=== PATIENT | male | born 1960 | race Caucasian/White ===

== ENCOUNTER 2018-04-19 02:24 | Inpatient (IN) | payer BC, OTHER ==
[2018-04-18 13:23] LABS: INR 1.03
--- NOTE | 2018-04-18 15:16 | LEVENE H&P ---
DATE OF ADMISSION: April 19, 2018 IDENTIFICATION/CHIEF COMPLAINT The patient is a 57-year-old gentleman with a chief complaint of right knee pain. HISTORY OF PRESENT ILLNESS The patient has a history of progressive right knee arthritis that has been painful and debilitating, refractory to conservative measures. Surgery is indicated to relieve symptoms after failure of nonoperative measures. PAST MEDICAL HISTORY 1. Notable for hypertension. 2. Sleep apnea. 3. Restless leg syndrome. 4. Gout. PAST SURGICAL HISTORY Notable for contralateral knee replacement. ALLERGIES No known drug allergies. CURRENT MEDICATIONS 1. Ropinirole 2 mg q nightly. 2. Lisinopril/Hydrochlorothiazide 20/12.5 mg 2 tablets q day. 3. Allopurinol 300 mg q day. 4. Baby Aspirin per day. 5. Vitamins. FAMILY HISTORY Non-contributory. SOCIAL HISTORY Notable for chewing a can of tobacco about every 3 days for 40 years. He drinks alcohol 2-3 beers per day. Denies abuse. REVIEW OF SYSTEMS Noncontributory. PHYSICAL EXAMINATION GENERAL: This is a well-developed, well-nourished male who appears stated age. HEENT: Normocephalic, atraumatic. Extraocular muscles intact. NECK: Supple, non-tender. LUNGS: Clear to auscultation bilaterally. HEART: Regular rate and rhythm. ABDOMEN: Soft. ORTHOPEDIC EXAMINATION Exam of the right knee he had mild varus deformity. Effusions are present. Skin condition is good. He is stiff with range of motion. Gross stability is good. Extensor function intact. RADIOGRAPHS Demonstrate end-stage degenerative changes. ASSESSMENT Right knee degenerative joint disease progressively painful and debilitating, refractory to conservative care. PLAN Per patient request, we are going to proceed with total knee arthroplasty. The nature of the procedure, the risks, benefits, the anticipated rehabilitative course were reviewed. Risks include but are not limited to , major medical or anesthetic complication, infection, neurovascular injury, stiffness, scarring, fracture, tendon rupture, instability, implant loosening, migration or failure, blood transfusion, re-tear, progressive arthritis, persistent or recurrent pain or symptoms, need for additional surgery and other unforeseen. He understands and wishes to proceed. A signed permit is placed in the chart. No guarantees are given or implied. RENITA
[~2018-04-19] VITALS: Ht 185.4 cm; Wt 199.1 kg
[2018-04-19] VITALS (12 sets, daily range): BP systolic 110–124; BP diastolic 63–84
[~2018-04-19 02:24] MED LIST: ACETAMINOPHEN 500 MG TAB PO ONE; ALLO-119 PO; ASPI-1471 PO; ASPI-757 PO; ASPI81TA94 PO; CELECOXIB 200 MG CAP PO ONE; FAMOTIDINE 20 MG TAB PO ONE; FURO-45 PO; HYDR-389 PO; IBUP-136 PO; LIDOCAINE/SOD BICARB 8.4% SYR ID ONE; LISI-353 PO; LISI-362 PO; MIDAZOLAM 2 MG/2 ML VIAL IVP PRN; NORMOSOL R SOLN(*) 1000 ML BAG 1,000 ML IV PRN; POTASSIUM PO; PREGABALIN 150 MG CAPSULE PO ONE; ROPI2TAB28 PO; TRANEXAMIC AC 1000 MG/10ML SDV 1,000 MG in DEXTROSE 5% 50 ML BAG 50 ML IV ONE; ceFAZolin(*) 2GM/D5W 50ML 50 ML IVPB ONE; cloNIDine EPIDUR INJ 100MCG/ML 40 MCG, ROPIVACAINE 0.5% 20 ML VIAL 25 ML, EPINEPHrine H... INJ ONE
[2018-04-19] MEDS ORDERED: LIDOCAINE MPF 1% 5 ML VIAL ONE (07:55)
[2018-04-19] MEDS ORDERED: PROPOFOL EMUL(*) 10MG/ML 20 ML 20 ML ONE (07:55)
[2018-04-19] MEDS ORDERED: DEXAMETHASONE SOD 4 MG/ML VIAL ONE (07:55)
[2018-04-19] MEDS ORDERED: fentaNYL CITR 100 MCG/2 ML AMP ONE (07:55)
[2018-04-19] MEDS ORDERED: ONDANSETRON 4 MG/2 ML VIAL ONE (07:55)
[2018-04-19] MEDS ORDERED: KETAMINE HCL-NS 50 MG/5 ML SYR ONE (07:56)
[2018-04-19] MEDS ORDERED: MIDAZOLAM 2 MG/2 ML VIAL ONE (09:38)
[2018-04-19] MEDS ORDERED: ceFAZolin 1 GM VIAL IVPB ONE (10:37)
[2018-04-19] MEDS ORDERED: NS 0.9% IRRIGATION 1000ML PLCT IR ONE (11:37)
[2018-04-19] MEDS ORDERED: LACTATED RINGER 3000 ML BAG IR ONE (11:37)
[2018-04-19] MEDS ORDERED: LIDOCAINE/SOD BICARB 8.4% SYR ID ONE (12:30)
[2018-04-19] MEDS ORDERED: TRANEXAMIC AC 1000 MG/10ML SDV 1,000 MG in DEXTROSE 5% 50 ML BAG 50 ML IV ONE (12:30)
[2018-04-19] MEDS ORDERED: cloNIDine EPIDUR INJ 100MCG/ML 40 MCG, ROPIVACAINE 0.5% 20 ML VIAL 25 ML, EPINEPHrine H... INJ ONE (12:30)
[2018-04-19] MEDS ORDERED: MIDAZOLAM 2 MG/2 ML VIAL IVP PRN (12:30)
[2018-04-19] MEDS ORDERED: PREGABALIN 150 MG CAPSULE PO ONE (12:30)
[2018-04-19] MEDS ORDERED: NORMOSOL R SOLN(*) 1000 ML BAG 1,000 ML IV PRN ×2 (12:30→12:50)
[2018-04-19] MEDS ORDERED: CELECOXIB 200 MG CAP PO ONE (12:30)
[2018-04-19] MEDS ORDERED: ceFAZolin(*) 2GM/D5W 50ML 50 ML IVPB ONE (12:30)
[2018-04-19] MEDS ORDERED: ACETAMINOPHEN 500 MG TAB PO ONE (12:30)
[2018-04-19] MEDS ORDERED: FAMOTIDINE 20 MG TAB PO ONE (12:30)
[2018-04-19] MEDS ORDERED: MAGNESIUM HYDROXIDE* 30ML UDCP PO PRN (12:50)
[2018-04-19] MEDS ORDERED: BISACODYL 10 MG SUPP PR PRN (12:50)
[2018-04-19] MEDS ORDERED: diphenhydrAMINE 50 MG/ML VIAL IVP PRN (12:50)
[2018-04-19] MEDS ORDERED: ZOLPIDEM TARTRATE 5 MG TAB PO PRN (12:50)
[2018-04-19] MEDS ORDERED: diphenhydrAMINE 25 MG CAP PO PRN (12:50)
[2018-04-19] MEDS ORDERED: ACETAMINOPHEN 325 MG TAB PO PRN (12:50)
[2018-04-19] MEDS ORDERED: FLUSH 10 ML SYR IVP PRN (12:50)
[2018-04-19] MEDS ORDERED: PROMETHAZINE 25 MG/ML 1 ML AMP IVP PRN (12:50)
[2018-04-19] MEDS ORDERED: BENZOCAINE/MENTHOL 1 EACH LOZG PO PRN (12:50)
--- NOTE | 2018-04-19 13:15 | RADIOLOGY IMAGING REPORT ---
FACILITY: [facility] PATIENT NAME: Misael Shea : 1960 MR: [id number] V: [id number] EXAM DATE: ORDERING PHYSICIAN: MICKIE MAGDALENO TECHNOLOGIST: Location: [facility] Patient: Misael Shea : 1960 Visit/Account:[id number] Date of Sevice: 04/19/2018 KNEE LIMITED RIGHT COMPARISON: None HISTORY: RIGHT TKA TECHNIQUE: 3 views of the right knee FINDINGS: BONES: Hardware components of a right total knee arthroplasty are present in anatomic alignment with out immediate complication. There is no fracture. SOFT TISSUES: Gas in the anterior soft tissues related to surgery. Skin alejandro anteriorly. EFFUSION: None suggested. OTHER: Negative. IMPRESSION: Right total knee arthroplasty in good alignment without immediate complication. Recent postsurgical c hanges. Report Dictated By: Ramiro Trejo at 04/19/2018 1:08 PM Report E-Signed By: Ramiro Trejo at 04/19/2018 1:11 PM [id number]
[2018-04-19] MEDS ORDERED: LISI-374 PO ×2 (14:10→14:12)
[2018-04-19] MEDS ORDERED: HYDR12.556 PO (14:12)
--- NOTE | 2018-04-19 14:50 | Hospitalist Consultation ---
History of Present Illness Requesting Physician Dr. Mejia Reason for Consult Medical Management Chief Complaint s/p right total knee replacement History of Present Illness He was admitted s/p right total knee replacement. It is reported the surgery went well and without complication. History Problems: (1) HTN (hypertension) Status: Chronic (2) Restless leg syndrome Status: Chronic (3) Gout Status: Chronic (4) RACQUEL (obstructive sleep apnea) Status: Chronic Home Meds Reported Medications Lisinopril (LISINOPRIL) 40 Mg Tablet, 40 MG PO QDAY, TAB 04/19/18 Hydrochlorothiazide (HYDROCHLOROTHIAZIDE) 12.5 Mg Capsule, 2 TAB PO QDAY, CAPSULE 04/19/18 Aspirin (ASPIRIN) 81 Mg Tab.chew, 81 MG PO QDAY, TAB.CHEW 03/30/18 Ropinirole Hcl (ROPINIROLE HCL) 2 Mg Tablet, 2 MG PO DAILY PRN for LEG RESTLESSNESS 11/15/15 Allopurinol (ZYLOPRIM) 300 Mg Tablet, 300 MG PO QDAY, TAB 11/15/15 Discontinued Reported Medications Lisinopril (LISINOPRIL) 40 Mg Tablet, 40 MG PO QDAY, TAB 04/19/18 Lisinopril (LISINOPRIL) 10 Mg Tablet, 12.5 MG PO QDAY, #2 TAB 03/30/18 Allergies: Coded Allergies: No Known Drug Allergies (Unverified , 11/15/15) Patient History: FH: breast cancer MOTHER Hx Smoking: No (3-4 CANS/WEEK) Caffeine Intake: Soda Caffeine/Cups Per Day: occassionally Hx Alcohol Use: Yes Alcohol Used: Beer Hx Substance Use Disorder: No Social Drug Use: Never History of IV Drug Use: No Review of Systems All Systems Reviewed/Normal: Yes, Except as Noted ENT: Sinus Congestion Exam Vital Signs Vital Signs Date Time Temp Pulse Resp B/P (MAP) Pulse Ox O2 Delivery O2 Flow Rate FiO2 04/19/18 14:16 98.0 67 16 123/65 (84) 91 Nasal Cannula 2.0 General Appearance: Alert, Awake, No Acute Distress, Afebrile Neuro: No Gross deficits Cardiovascular: Regular Rate and Rhythm Respiratory: No Respiratory Distress, Clear to Auscultation GI: Abd Soft and Non-Tender Extremities: Warm, Perfused Psych: Alert & Oriented X3, Appropriate Mood & Affect Assessment and Plan Problems: (1) Status post total right knee replacement Status: Acute Assessment & Plan: Followed by Dr. Mejia. He will be placed on Aspirin for DVT prophylaxis. He has no history of DVT or PE. (2) HTN (hypertension) Status: Chronic Assessment & Plan: He is on chronic treatment with Lisinopril and Hydrochlorothiazide. The lisinopril has been restarted with hold parameters. (3) Gout Status: Chronic Assessment & Plan: He is on chronic treatment with Allopurinol. (4) Restless leg syndrome Status: Chronic Assessment & Plan: He is on chronic treatment with Ropinirole. (5) RACQUEL (obstructive sleep apnea) Status: Chronic Assessment & Plan: He brought his CPAP to use during admission. (6) Nasal congestion Status: Acute Assessment & Plan: We will try nasal spray Afrin to help with nasal congestion. (7) Morbid obesity with BMI of 50.0-59.9, adult Status: Chronic Venous Thromboembolism Antithrombotics Is Pt On Any Antithrombotics?: No Exam Sepsis Risk: No Definite Risk Problem Qualifiers (1) HTN (hypertension): Hypertension type: essential hypertension Qualified Codes: I10 - Essential (primary) hypertension NAIDA GALLARDO TELLER MANAGER Apr 19, 2018 14:50
[2018-04-19] MEDS: OXYMETAZOLINE SPRAY 15 ML BTL ENA SCH ×2 (15:16→21:00)
[2018-04-19] MEDS: APAP/HYDROCODONE 325/7.5 TAB PO PRN (15:17)
[2018-04-19] MEDS ORDERED: NS(*) 0.9% 500 ML BAG 500 ML ONE (17:09)
[2018-04-19] MEDS: ceFAZolin(*) 1 GM VIAL 1 GM in NS(*) 0.9% 100 ML ADDVANT BAG 100 ML IVPB SCH (17:10)
[2018-04-19] MEDS: CELECOXIB 200 MG CAP PO SCH (17:11)
[2018-04-19] MEDS: DIAZEPAM 5 MG TAB PO PRN (19:55)
--- NOTE | 2018-04-19 20:19 | OPERATIVE REPORT 1 ---
EVENT DATE: April 19, 2018 SURGEON: Clark Mejia MD ANESTHESIOLOGIST: Jem Fraser MD ANESTHESIA: General plus spinal. ACUTE CARE SURGEON: MARCOS iNcole PREOPERATIVE DIAGNOSIS Right knee degenerative joint disease. POSTOPERATIVE DIAGNOSIS Right knee degenerative joint disease PROCEDURE PERFORMED Right total knee arthroplasty. ESTIMATED BLOOD LOSS Minimal. DRAINS None. SPECIMENS None. COMPLICATIONS None apparent. TOURNIQUET TIME 63 minutes IMPLANTS USED [place] Triathlon knee system with 7 right PS femur, 7 standard tibial baseplate, 39 mm universal symmetric, all-polyethylene patellar button, and an 11 mm PS tibial tray liner. Polyethylene is X3. INDICATIONS Misael is a 57-year-old gentleman with intractable pain and disability related to end-stage knee arthritis. Surgery is indicated to relieve symptoms after failure of nonoperative measures. DESCRIPTION OF PROCEDURE Patient was taken to the operating room and placed supine on the operating table. A spinal block was administered by the anesthesiologist. General anesthesia was induced. Antibiotics and TXA were administered IV. Right lower extremity was prepped and draped in the usual sterile fashion for orthopedic surgery. Limb was exsanguinated with an Esmarch bandage. Tourniquet inflated to 300 mmHg. Midline longitudinal incision is made, carried down through the skin and subcutaneous tissue to the extensor mechanism. Full-thickness flaps are developed far enough medially to allow medial parapatellar arthrotomy be performed. Due to the patient's size and body habitus, patella needs to be subluxed rather than everted. A gentle subperiosteal medial release is initiated in a titrated fashion to balance the knee. The menisci and the cruciate ligaments are removed. A step drill is used to enter the distal femur. A 10-inch long alignment guide is used to engage the isthmus, cut set for 5 degrees of valgus relative to the anatomic axis. The 10 mm resection block is applied, pinned, and cuts made with an oscillating saw. AP sizing guide is applied to the distal femoral cut, positioned for 3 degrees of external rotation relative to the posterior condyles. Size 7 is optimal without risk of notching. The four-in-one cutting block is applied. Anterior, posterior, posterior chamfer, and anterior chamfer cuts are made respectively. PS block is applied and centered. Medial and lateral bone is removed through the box. Trial femur has nice fit. Attention is turned to tibial preparation. The extramedullary guide is applied, positioned for varus, valgus, posterior slope, and rotation. It is set to resect 9 mm from the relatively intact lateral tibial plateau. It is dropped down a couple millimeters to ensure an adequate cut. Block is pinned. Extramedullary alignment check is made and cuts made with an oscillating saw. After removal of spurs and posterior condylar bone, gaps are balanced and symmetric with no additional releases required. The size 7 baseplate provides good bony coverage of the tibial cut without soft tissue overhang. This is selected along with a trial liner and trial femur. These are inserted. The knee is brought to full extension. Patella is taken from a starting thickness of 25 to a residual of 15 with a patellar clamp and oscillating saw. The 39 provides optimum bony coverage without soft tissue overhang. Lug holes are drilled. Patella tracks nicely with the no-touch technique. Final tibial preparation consists of assuring appropriate rotational and translational positioning of the component. Boss is reamed. Fin is punched. Surfaces are lavaged. Components cemented in a single stage. Once the cement is fully polymerized, tourniquet is deflated. Hemostasis is assured. All loose debris is cleared from the joint. The 11 fills up the gap ideally, allowing the knee to drop to full extension without hyperextension, providing optimal soft tissue tension and stability. The tray is lavaged and dried. The liner is locked into the baseplate. Joint is reduced. Arthrotomy is closed in flexion with #2 Ethibond, subcutaneous tissue with 3-0 Vicryl, skin with surgical alejandro. Xeroform and 4 x 4's applied as a dry, sterile dressing and a compression wrap. The patient is awakened from anesthesia and taken to the recovery room in stable condition having tolerated the procedure well. PLAN Plan is for standard TKA rehab protocol. [facility]
[2018-04-20 00:23] VITALS: BP 108/82
[2018-04-20] MEDS: APAP/HYDROCODONE 325/7.5 TAB PO PRN ×4 (00:28→15:08)
[2018-04-20] MEDS: ceFAZolin(*) 1 GM VIAL 1 GM in NS(*) 0.9% 100 ML ADDVANT BAG 100 ML IVPB SCH ×2 (00:28→08:24)
[2018-04-20 03:27] VITALS: BP 119/85
[2018-04-20] MEDS: DIAZEPAM 5 MG TAB PO PRN ×2 (04:10→10:15)
[2018-04-20 07:37] VITALS: BP 113/13
[2018-04-20] MEDS: ASPIRIN 325 MG TAB PO SCH (08:19)
[2018-04-20] MEDS: CELECOXIB 200 MG CAP PO SCH ×2 (08:19→18:26)
[2018-04-20] MEDS: ALLOPURINOL 300 MG TAB PO SCH (08:19)
[2018-04-20] MEDS: LISINOPRIL 20 MG TAB PO SCH (09:00)
[2018-04-20] MEDS: OXYMETAZOLINE SPRAY 15 ML BTL ENA SCH ×2 (09:00→21:00)
--- NOTE | 2018-04-20 11:15 | Hospitalist Progress Note ---
Subjective Progress Notes Subjective He has no complaints this morning. He had no acute events overnight. Patient Complains of: Cardiovascular: No: Chest Pain Respiratory: No: Shortness of Breath Physical Exam Vital Signs Date Time Temp Pulse Resp B/P (MAP) Pulse Ox O2 Delivery O2 Flow Rate FiO2 04/20/18 07:38 90 Nasal Cannula 2.0 04/20/18 07:37 97.9 65 20 113/13 (46) Intake and Output 04/20/18 06:59 Intake Total 5560 ml Balance 5560 ml Intake Oral 1360 ml IV Total 2200 ml Other 2000 ml # Voids 2 General Appearance: Alert, Awake, No Acute Distress, Afebrile Neuro: No Gross deficits Cardiovascular: Regular Rate and Rhythm Respiratory: No Respiratory Distress, Clear to Auscultation GI: Soft and Non-Tender Psych: Alert & Oriented X3, Appropriate Mood & Affect Result Diagram: 04/20/18 0523 Assessment and Plan Problems: (1) Status post total right knee replacement Status: Acute Assessment & Plan: Followed by Dr. Mejia. He will be placed on Aspirin for DVT prophylaxis. He has no history of DVT or PE. (2) HTN (hypertension) Status: Chronic Assessment & Plan: He is on chronic treatment with Lisinopril and Hydrochlorothiazide. The lisinopril has been restarted with hold parameters. (3) Gout Status: Chronic Assessment & Plan: He is on chronic treatment with Allopurinol. (4) Restless leg syndrome Status: Chronic Assessment & Plan: He is on chronic treatment with Ropinirole. (5) RACQUEL (obstructive sleep apnea) Status: Chronic Assessment & Plan: He brought his CPAP to use during admission. (6) Nasal congestion Status: Acute Assessment & Plan: He has improvement in congestion symptoms with Afrin. (7) Morbid obesity with BMI of 50.0-59.9, adult Status: Chronic Exam Sepsis Risk: No Definite Risk Problem Qualifiers (1) HTN (hypertension): Hypertension type: essential hypertension Qualified Codes: I10 - Essential (primary) hypertension NAIDA GALLARDO AIRCRAFT ENGINE MECHANIC OVERHAUL Apr 20, 2018 11:15
[2018-04-20 15:11] VITALS: BP 133/84
[2018-04-20 15:17] VITALS: Ht 185.4 cm; Wt 199.1 kg
[2018-04-20 19:05] VITALS: BP 109/60
[2018-04-21 03:36] VITALS: BP 124/84
[2018-04-21] MEDS: APAP/HYDROCODONE 325/7.5 TAB PO PRN ×2 (04:08→08:44)
[2018-04-21] MEDS ORDERED: HYDR-4308 PO (08:47)
[2018-04-21] MEDS: OXYMETAZOLINE SPRAY 15 ML BTL ENA SCH (09:00)
[2018-04-21] MEDS ORDERED: ASPI-757 PO (09:06)
[2018-04-21 09:10] VITALS: BP 127/86
[2018-04-21] MEDS: CELECOXIB 200 MG CAP PO SCH (09:12)
[2018-04-21] MEDS: ASPIRIN 325 MG TAB PO SCH (09:13)
[2018-04-21] MEDS: ALLOPURINOL 300 MG TAB PO SCH (09:13)
[2018-04-21] MEDS: LISINOPRIL 20 MG TAB PO SCH (09:13)
--- NOTE | 2018-04-21 12:56 | Hospitalist Progress Note ---
Subjective Progress Notes Subjective He has no complaints this morning. He wants to go home today. He had no acute events overnight. Patient Complains of: Cardiovascular: No: Chest Pain Respiratory: No: Shortness of Breath Physical Exam Vital Signs Date Time Temp Pulse Resp B/P (MAP) Pulse Ox O2 Delivery O2 Flow Rate FiO2 04/21/18 09:10 98.5 100 16 127/86 (100) 89 Room Air 04/21/18 03:36 4.0 Intake and Output 04/21/18 06:59 Intake Total 1110 ml Balance 1110 ml Intake Oral 1000 ml IV Total 110 ml # Voids 3 General Appearance: Alert, Awake, No Acute Distress, Afebrile Neuro: No Gross deficits Cardiovascular: Regular Rate and Rhythm Respiratory: No Respiratory Distress, Clear to Auscultation Psych: Alert & Oriented X3, Appropriate Mood & Affect Result Diagram: 04/20/18 0523 Assessment and Plan Problems: (1) Status post total right knee replacement Status: Acute Assessment & Plan: Followed by Dr. Mejia. He will be placed on Aspirin for DVT prophylaxis. He has no history of DVT or PE. (2) HTN (hypertension) Status: Chronic Assessment & Plan: He is on chronic treatment with Lisinopril and Hydrochl orothiazide. (3) Gout Status: Chronic Assessment & Plan: He is on chronic treatment with Allopurinol. (4) Restless leg syndrome Status: Chronic Assessment & Plan: He is on chronic treatment with Ropinirole. (5) RACQUEL (obstructive sleep apnea) Status: Chronic Assessment & Plan: He brought his CPAP to use during admission. (6) Nasal congestion Status: Acute Assessment & Plan: Resolved. He had improvement in congestion symptoms with Afrin. (7) Morbid obesity with BMI of 50.0-59.9, adult Status: Chronic Exam Sepsis Risk: No Definite Risk Problem Qualifiers (1) HTN (hypertension): Hypertension type: essential hypertension Qualified Codes: I10 - Essential (primary) hypertension NAIDA GALLARDO BUILDING CONSTRUCTION INSPECTOR Apr 21, 2018 12:56
== END 2018-04-21 10:08 | disposition home or self-care (01) | DRG 470 ==
LOC: OR 02:24 → MED 13:55
PROVIDERS: ADMIT Orthopaedic Surgery; ATTEND Orthopaedic Surgery
PROC: 5A09357 Assistance with Respiratory Ventilation, Less than 24 Consecutive Hours, Continuous Positive Airway Pressure (ICD-10-PCS; 2018-04-19)
PROC: 0SRC0J9 Replacement of Right Knee Joint with Synthetic Substitute, Cemented, Open Approach (ICD-10-PCS; principal; 2018-04-19 09:39)
DX: M17.11 Unilateral primary osteoarthritis, right knee (principal); Z68.43 Body mass index [BMI] 50.0-59.9, adult; I10 Essential (primary) hypertension; E66.01 Morbid (severe) obesity due to excess calories; G25.81 Restless legs syndrome; M21.161 Varus deformity, not elsewhere classified, right knee; M1A.9XX0 Chronic gout, unspecified, without tophus (tophi); F17.220 Nicotine dependence, chewing tobacco, uncomplicated; J45.909 Unspecified asthma, uncomplicated; R09.81 Nasal congestion; G47.33 Obstructive sleep apnea (adult) (pediatric); Z96.652 Presence of left artificial knee joint
CPT/HCPCS: 36415; 82310; 82374; 82435; 82565; 82947; 84132; 84295; 84520; 85610; 86850; 86900; 86901; 97161; C1713; C1776; J0171; J0690; J0735; J1100; J1885; J2001; J2250; J2405; J2704; J2795; J3010; J3490; J7040; J7050; J7060